=== PATIENT | male | born 1995 | race Caucasian/White ===

== ENCOUNTER 2019-05-17 17:40 | Emergency (ER) | payer MEDICAID ==
[~2019-05-17] VITALS: Ht 188 cm; Wt 97.0 kg
[2019-05-17 18:09] VITALS: BP 121/62
== END 2019-05-18 01:39 | disposition left against medical advice (07) ==
LOC: ER 17:40
DX: R11.10 Vomiting, unspecified (principal); Z53.21 Procedure and treatment not carried out due to patient leaving prior to being seen by health care provider